=== PATIENT | female | born 1955 | race Caucasian/White ===

== ENCOUNTER 2019-01-19 08:07 | Observation (INO) | payer MEDICAID ==
[~2019-01-19] VITALS: Ht 152.4 cm; Wt 99.3 kg
[2019-01-19 08:07] VITALS: BP 146/77
[~2019-01-19 08:07] MED LIST: ADVIL MIGRAINE200 MG PO; ASPIRIN BUFFER325 MG PO; CLARITIN10 MG PO; DIPHENHYDRAMINE25 M3 PO; FAMOTIDINE; GEMFIBROZIL 60600 MG PO; HYDROCHLOROTHIA25 M1 PO; KLOR-CON 1010 MEQ PO; LISINOPRIL20 MG PO; LITE COAT ASPI325 MG PO; LOPERAMIDE 2 MG2 M1 PO; MULTIPLE VITAM1 EAC1 PO; NITROGLYCERIN0.4 MG SL; PAXIL40 MG PO; PERCOCET 10-321 EACH PO; PLAVIX 75 MG TA75 MG PO; SIMVASTATIN80 MG PO; TOPROL XL25 MG PO; TRAZODONE 100100 MG PO; VENTOLIN HFA INH8 GM; XANAX 0.5 MG0.5 M1 PO; ZANTAC 150MG T150 M1 PO
[2019-01-19 08:27] LABS: ABSOLUTE EOSINOPHILS 0.2 thou/uL (0.0-0.7); ABSOLUTE LYMPHOCYTES 3.7 thou/uL (0.8-5.3); ABSOLUTE MONOCYTES 0.2 thou/uL (0.0-1.2); ABSOLUTE NEUTROPHILS 2.3 thou/uL (1.6-8.1); BASOPHILS 0.6 %; EOSINOPHILS 2.9 %; HEMOGLOBIN 14.7 gm/dL (12.0-15.0); LYMPHOCYTES 56.8 %; MCH 29.8 pg (26.0-34.0); MCHC 33.5 g/dL (28.0-37.0); MCV 89.1 fL (80.0-100.0); MONOCYTES 3.8 %; MPV 10.3 fl. (7.2-11.1); NUCLEATED RBCS 0 /100WBC; PLATELET COUNT* 118 thou/uL (150-400); POLYS 35.9 %; RBC 4.94 mil/uL (4.20-5.00); RDW-CV 15.2 % (10.5-14.5); WBC 6.5 thou/uL (4.0-11.0)
[2019-01-19 08:38] LABS: ANION GAP 8 mmol/L (7-16); BUN 23 mg/dL (7-18); CALCIUM 9.1 mg/dL (8.5-10.1); CHLORIDE 105 mmol/L (98-107); CO2 30 mmol/L (21-32); CREATININE 1.1 mg/dL (0.6-1.3); GLUCOSE 95 mg/dL (70-99); SODIUM 143 mmol/L (136-145)
[2019-01-19 08:48] LABS: ALBUMIN 3.3 g/dL (3.4-5.0); ALKALINE PHOSPHATASE 59 U/L (46-116); LIPASE 154 U/L (73-393); NT-PRO BRAIN NAT PEPTIDE 240 pg/mL (<300); SGOT 14 U/L (15-37); SGPT 15 U/L (30-65); TOTAL BILIRUBIN 0.2 mg/dL (<0.1-1.0); TOTAL PROTEIN 7.1 g/dL (6.4-8.2); TROPONIN-I LEVEL <0.06 ng/mL (<0.06)
[2019-01-19] MEDS ORDERED: OXYCONTIN20 M1 PO (08:54)
[2019-01-19] MEDS ORDERED: ROBITUSSIN100 MG/53 PO (08:55)
[2019-01-19] MEDS ORDERED: FLEXERIL PO (08:57)
[2019-01-19] MEDS ORDERED: PENTOXIFYLLINE400 MG PO (08:58)
[2019-01-19] MEDS ORDERED: LISINOPRIL10 MG PO (08:58)
[2019-01-19] MEDS ORDERED: XANAX 0.5 MG0.5 MG PO (08:59)
[2019-01-19] MEDS ORDERED: LYRICA200 MG PO (09:00)
[2019-01-19] MEDS ORDERED: TRAZODONE HCL100 MG PO (09:01)
[2019-01-19] MEDS ORDERED: PROTONIX40 M1 PO (09:03)
[2019-01-19 11:20] VITALS: BP 181/91
[2019-01-19 11:20] LABS: CHOLESTEROL 156 mg/dL (<200); HDL CHOLESTEROL 50 mg/dL (>40); LDL CHOLESTEROL 87 mg/dL (<100); TC:HDL 3.1 Ratio (Not establshd); TRIGLYCERIDE 98 mg/dL (<150); VLDL 20 mg/dL (<40)
[2019-01-19 11:23] LABS: SERUM ASSESSMENT Clear
[2019-01-19 11:48] VITALS: BP 163/70
[2019-01-19] MEDS ORDERED: OXYCODONE HCL10 MG PO (12:21)
[2019-01-19] MEDS ORDERED: LORATIDINE 10 M10 M1 PO (12:22)
[2019-01-19] MEDS ORDERED: ZANAFLEX4 M1 PO (12:25)
[2019-01-19] MEDS ORDERED: HYDROXYZINE HCL25 M1 PO (12:28)
[2019-01-19] MEDS ORDERED: CRESTOR40 MG PO (12:29)
[2019-01-19 16:09] LABS: GLYCOHEMOGLOBIN (HGB A1C) 5.5 % (4.8-5.6)
[2019-01-19 17:04] VITALS: BP 139/66
[2019-01-19 17:05] VITALS: BP 137/62; BP 147/89
[2019-01-19 19:50] VITALS: BP 115/54
[2019-01-20] VITALS: BP 151/66
[2019-01-20 04:32] VITALS: BP 121/61
[2019-01-20 05:04] LABS: HEMATOCRIT 40.5 % (37.0-47.0); HEMOGLOBIN 13.3 gm/dL (12.0-15.0); MCH 29.4 pg (26.0-34.0); MCHC 32.8 g/dL (28.0-37.0); MCV 89.6 fL (80.0-100.0); MPV 10.4 fl. (7.2-11.1); RBC 4.52 mil/uL (4.20-5.00); RDW-CV 15.2 % (10.5-14.5); WBC 6.1 thou/uL (4.0-11.0)
[2019-01-20 05:15] LABS: CALCIUM 9.1 mg/dL (8.5-10.1); CREATININE 1.2 mg/dL (0.6-1.3); MAGNESIUM 1.9 mg/dL (1.8-2.4); POTASSIUM 4.7 mmol/L (3.5-5.1)
[2019-01-20 08:15] VITALS: BP 112/54
[2019-01-20] MEDS ORDERED: SYNTHROID50 MCG PO (09:18)
--- NOTE | 2019-01-20 14:31 | CARDNUC ---
[place] [address] CARDIAC NUCLEAR IMAGING REPORT Name: ANABEL PALMA Room: [address] M.R.#: [id number] Admission: 01/19/19 Attend Phys: Remi Muhammad MD Discharge: Date of : 53 Date of Service: 01/20/19 1431 Report #: [id number] THIS REPORT FOR: //name// APPROVED REPORT Imaging Protocol: Stress Tc-99m/Rest Tc-99m 2 days Study performed: 01/19/2019 13:13:00 Indication: Chest pain, Dyspnea, Bradycardia. Patient Location: In-Patient Room #: 203 Stress Tech: Sailaja Maria Stress Nurse: Fatoumata Garner RN NM Tech:FLACO Bautista Ht: 5 ft 0 in Wt: 218 lbs BSA: 1.94 m2 BMI: 42.57 Medical History Medical History: Angina, CAD s/p CABG, CAD s/p stent, COPD, Fatigue, Former Smoker, HTN, Hyperlipidemia, Obesity , RBBB, SOB, Weakness. Medications: Atorvastatin, Lisinopril, ASA 325 MG, NTG, Home med - Metoprolol. Allergies: Penicillins, Bee Stings. Cardiac Risk Factors: Age, FHX of CAD, HTN, Hyperlipidemia, SOB, Past Smoker. Previous Cardiac Procedures: Myocardial infarction, PCI. Pretest Chest Pain Characteristics: No chest pain Exercise History: Sedentary Physical Disabilities: Back Meds Held (24 hrs): NTG. Pharmacologic Stress Pharmacologic stress test was performed by injecting Regadenoson 0.4 mg IV push over 10-15 seconds immediately followed by the intravenous injection of 39.4 mCi of Tc-99m Sestamibi. Time of stress injection: 1035 Date: 01/20/2019 Administration Route: IV Administration Site: Left Arm Gated Stress SPECT was performed 40 minutes after stress injection. The images were gated to evaluate regional wall motion and calculate left ventricular ejection fraction. Stress only was performed in [place] [address] CARDIAC NUCLEAR IMAGING REPORT Name: PALMAANABEL Helen [address] [id number] Admission: 01/19/19 Attend Phys: Remi Muhammad MD Discharge: Date of : 53 Date of Service: 01/20/19 1431 Report #: [id number] Stress Test Details Stress Test: Pharmacologic stress testing performed using 0.4 mg of regadenoson per 5 mL given IV over 10 seconds. Reason for pharmacologic stress test: Painful back, wheelchair use.. 60 mg caffeine given for nausea. HR Max Heart Rate (APMHR): 156 bpm Resting HR: 61 bpm Target HR (85% APMHR): 132 bpm Max HR Achieved: 113 bpm % of APMHR: 72 Recovery HR: 71 bpm HR response to stress: Normal HR response to stress BP Resting BP: 148/78 mmHg Max BP: 196/68 mmHg Recovery BP: 184/73 mmHg BP response to stress: Normal blood pressure response to stress. ECG Resting ECG: nsr rbbb Stress ECG: nsr rbbb Arrhythmia: none Recovery ECG: nsr rbbb Recovery Arrhythmia: none Clinical Reason for Termination: Completed protocol Stress Symptoms: Flushed, Nausea, Dizzy. Exercise duration: 00 min 00 sec Exercise capacity: 1.00 METs Nurse Comments 63 year old female inpatient presented with recent HX of CP, SOA, and Bradycardia. Patient tolerated sitting Lexiscan. Recovery required 60 MG IV Caffeine for Nausea, effective. Patient was escorted via wheelchair by staff to Nuclear Medicine for images. Patient was stable with no further complaints at that time. Stress ECG Conclusion nondiagnostic ecg Study Quality Study: Good Artifact: [place] [address] CARDIAC NUCLEAR IMAGING REPORT Name: ANABEL PALMA Room: [address]#: [id number] Admission: 01/19/19 Attend Phys: Remi Muhammad MD Discharge: Date of : 53 Date of Service: 01/20/19 1431 Report #: [id number] Perfusion Stress only SPECT images are normal in supine position, without any perfusion defects. Images were reviewed using [employer]. Wall Motion normal all segments Nuclear Conclusion ECG Findings: nonidiagnostic Clinical Findings: negative for ischemia Nuclear Findings: negative for ischemia Exercise Capacity: not assessed Left Ventricular Function: normal Risk Study: low Negative perfusion stress test for ischemia or infarct. <Conclusion> nondiagnostic ecg <ELECTRONICALLY SIGNED> By: Abner Early MD, [facility] 01/20/19 1431 1431 1431 Abner Early MD, FACC /INF
--- NOTE | 2019-01-20 14:52 | EKG ---
[place] [address] ELECTROCARDIOGRAM REPORT Name: ANABEL PALMA Room: [address]#: [id number] Admission: 01/19/19 Attend Phys: Remi Muhammad MD Discharge: Date of : 53 Report #: [id number] THIS REPORT FOR: //name// [facility] ED Test Date: 2019-01-19 Test Time: 08:10:26 Pat Name: ANABEL PALMA Department: Room: [facility] Gender: F Communication Lecturer: Chantell : 1955 Requested By: Olman López Order Number: [id number] MD: Puneet Nguyen Measurements Intervals [place] Rate: 51 P: 14 SD: 222 QRS: -48 QRSD: 144 T: -3 QT: 442 QTc: 408 Interpretive Statements Sinus rhythm Prolonged SD interval RBBB and LAFB Compared to ECG 11/08/2009 16:36:56 First degree AV block now present Left anterior fascicular block now present Electronically Signed On 01-20-2019 14:52:15 CDT by Puneet Nguyen [email or web address] <ELECTRONICALLY SIGNED> By: Puneet Nguyen MD, [facility] 01/20/19 1452 0810 0810 Puneet Nguyen MD, [facility] /EPI
--- NOTE | 2019-01-20 15:03 | CON ---
[address] [address] CONSULTATION Name: LOUIEANABEL M Room: [address] Reid MJose#: [id number] Admission: 01/19/19 Attend Phys: Remi Muhammad MD Discharge: Date of : 53 Report #: [id number] THIS REPORT FOR: //name// CC: Chao Muhammad DATE OF SERVICE: 01/19/2019 INPATIENT CONSULTATION DIAGNOSIS: Chest pain. HISTORY OF PRESENT ILLNESS: The patient is a 63-year-old lady who has a history of prior remote PCI and CO, who presented with sudden onset of severe chest and back pain. She has severe back pain and she was not sure if it is related to this versus an anginal process. She came in to the Emergency Room and her ECG was nondiagnostic. She has right bundle branch block abnormality and today her cardiac troponin levels are normal and currently she is asymptomatic. She has not been having any chest pain, pressure, or shortness of breath lately. She has not been having palpitations, heart racing or skipping. She denies syncope or presyncope. PAST MEDICAL HISTORY: She has a history of severe degenerative joint disease; prior surgery x 2. She has a history of prior coronary artery disease. She thinks she had an CO in 2009 with stents placed at [facility], but her most recent cardiac catheterization was in she thinks 2014 at [facility]. Records are not available at this time. She has hypertension, hyperlipidemia. She used to be a smoker. She also has peripheral vascular disease. 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 ALLERGIES: SHE HAS ALLERGIES TO BEE STINGS. HOME MEDICATIONS: Include full aspirin 325 mg daily, lisinopril, Xanax, trazodone, Protonix, metoprolol XL 50 mg daily, albuterol, Atrovent. At one point, she had been on Plavix, but her lead web application developer at [employer] stopped it. PHYSICAL EXAMINATION: VITAL SIGNS: Blood pressure is 163/70 with a pulse of 58. GENERAL: Pleasant elderly female. She is alert, oriented, [place] [address] CONSULTATION Name: ANABEL PALMA Room: [address]#: [id number] Admission: 01/19/19 Attend Phys: Remi Muhammad MD Discharge: Date of : 53 Report #: [id number] NECK: Supple. No jugular venous distention. CARDIOVASCULAR: Regular. There is faint murmur. There is no S3. LUNGS: Clear to auscultation. ABDOMEN: Soft, nontender. EXTREMITIES: There is no peripheral edema. Femoral pulses are diminished, but palpable. Her right radial artery pulse is reduced. Left one was normal. Distal extremities are warm. There is no edema. LABORATORY DATA: Electrocardiogram shows sinus rhythm, right bundle branch block, but there is evidence of an anterior CO and there are also Q-waves in leads 3 and aVF. Hemoglobin is 14.7, white blood cell count 6.5, platelet count 118,000. Troponin I is 0.06, first set; second set is pending. Coags are normal. Chest x-ray, CTA was negative for aortic dissection or pulmonary embolus. IMPRESSION: 1. Angina. 2. Back pain. 3. Coronary artery disease. 4. Hyperlipidemia. At this point in time, we will try to discern whether or not her symptoms are related to an exacerbation of her chronic back pain versus angina. I have arranged for further evaluation with a pharmacologic nuclear stress test. In the meantime, we will treat her blood pressure. We will try to obtain records from her last cardiac catheterization at [facility]. At that point, no coronary intervention was performed according to the patient and medical therapy was recommended. <ELECTRONICALLY SIGNED> By: Abner Early MD, FACC 01/20/19 1503 1238 [id number] Early MD, FACC /nt
[2019-01-20 15:14] VITALS: BP 112/54
== END 2019-01-20 16:30 | disposition home or self-care (01) ==
LOC: M.ERS 08:07 → M.2W 10:37 → M.TBA-ER 10:37 → M.2W 10:37
PROVIDERS: Emergency Medicine; Internal Medicine; ADMIT Family Medicine
DX: I25.10 Atherosclerotic heart disease of native coronary artery without angina pectoris (principal); R07.89 Other chest pain; K21.9 Gastro-esophageal reflux disease without esophagitis; F41.1 Generalized anxiety disorder; F32.9 Major depressive disorder, single episode, unspecified; G89.29 Other chronic pain; E66.01 Morbid (severe) obesity due to excess calories; I10 Essential (primary) hypertension; E78.5 Hyperlipidemia, unspecified; J44.9 Chronic obstructive pulmonary disease, unspecified; D69.6 Thrombocytopenia, unspecified; R00.1 Bradycardia, unspecified; E78.00 Pure hypercholesterolemia, unspecified; E03.9 Hypothyroidism, unspecified; R73.03 Prediabetes; Z91.030 Bee allergy status; Z88.0 Allergy status to penicillin; Z95.5 Presence of coronary angioplasty implant and graft; Z98.890 Other specified postprocedural states; Z79.899 Other long term (current) drug therapy